=== PATIENT | female | born 1995 | race Caucasian/White ===

== ENCOUNTER → 2021-10-04 | Outpatient (CLI) | payer BC, SELFPAY ==
[2021-10-04 10:39] LABS: Cholesterol 142 mg/dL (200); High Density Lipoprotein 44 mg/dL; Triglycerides 84 mg/dL; Very Low Density Lipoprotein 17 mg/dL (5-40)
== END | disposition home or self-care (01) ==
DX: L70.9 Acne, unspecified (principal)
CPT/HCPCS: 36415; 80061

== ENCOUNTER 2021-10-22 12:40 | Emergency (ER) | payer OTHER, BC, SELFPAY ==
[2021-10-22 12:42] VITALS: BP 119/76; PULSE 79; RESP 17; TEMP 36.9; O2SAT 95; BMI 28.8
[2021-10-22] MEDS: Diphth,Pertuss(Acell),Tet Vac 0.5 ML Vial IM (12:59)
[2021-10-22] MEDS: Amox/Clavulanate 875 MG Tablet PO (13:00)
[2021-10-22] MEDS: Acetaminophen 500 MG Tablet 1000 MG PO (13:01)
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
== END 2021-10-22 13:10 | disposition home or self-care (01) ==
LOC: ED 13:01
PROVIDERS: Emergency Provider Student in an Organized Health Care Education/Training Program; Visit Provider Student in an Organized Health Care Education/Training Program
DX: S60.571A Other superficial bite of hand of right hand, initial encounter (principal); S60.572A Other superficial bite of hand of left hand, initial encounter; W50.3XXA Accidental bite by another person, initial encounter; Y99.0 Civilian activity done for income or pay; Y92.119 Unspecified place in children's home and orphanage as the place of occurrence of the external cause
CPT/HCPCS: 90471; 90715; 99283

== ENCOUNTER → 2021-11-10 08:55 | Outpatient (CLI) | payer BC, SELFPAY ==
[2021-11-10 12:31] LABS: Cholesterol 165 mg/dL (200); High Density Lipoprotein 45 mg/dL; Triglycerides 129 mg/dL; Very Low Density Lipoprotein 26 mg/dL (5-40)
== END ==
DX: L70.0 Acne vulgaris (principal)
CPT/HCPCS: 36415; 80061